=== PATIENT | female | born 1975 | race Caucasian/White ===

== ENCOUNTER 2018-10-24 10:56 | Emergency (ER) | payer OTHER ==
[2018-10-24] MEDS ORDERED: Diphtheria,Pertussis(Acell),Tetanus Vaccine 0.5 ML Syringe IM ONE (11:26)
[2018-10-24] MEDS ORDERED: Silver Sulfadiazine 1% Crm 50 GM Tube TOP ONE (11:27)
--- NOTE | 2018-10-24 11:38 | EDM.PDOC ---
ED HPI GENERAL MEDICAL PROBLEM - General Chief Complaint: Burn Stated Complaint: BURN ON LT HAND Time Seen by Provider: 10/24/18 10:59 Source of Information: Reports: Patient, Family History Limitations: Reports: Language Barrier - History of Present Illness INITIAL COMMENTS - FREE TEXT/NARRATIVE: HISTORY AND PHYSICAL: History of present illness: Patient is a 43-year-old female who presents to the ED today after burning her hands while working with hot oil for cooking. This happened about an hour and a half prior to arrival to the ED. Patient is not up-to-date with her tetanus vaccine. Patient rates her pain a 5 out of 10. Patient has had no other trauma or injury to the area. Patient is able to fully move her hands and has full sensation of her hands. Patient states there was a few splash areas to her forehead. Patient denies fever, chills, nausea, vomiting, or all other GI, , cardiovascular, or respiratory concerns. She denies any previous health history. Review of systems: As per history of present illness and below otherwise all systems reviewed and negative. Past medical history: As per history of present illness and as reviewed below otherwise noncontributory. Surgical history: As per history of present illness and as reviewed below otherwise noncontributory. Social history: See social history for further information Family history: As per history of present illness and as reviewed below otherwise noncontributory. Physical exam: General: Patient is alert, oriented, and in no acute distress. She is sitting comfortable on exam table. Her son was able to translate for us. HEENT: Atraumatic, normocephalic, pupils equal and reactive bilaterally, negative for conjunctival pallor or scleral icterus, mucous membranes moist, TMs normal bilaterally, throat clear, neck supple, nontender, trachea midline. No drooling or trismus noted. No meningeal signs. No hot potato voice noted. Lungs: Clear to auscultation, breath sounds equal bilaterally, chest nontender. Heart: S1S2, regular rate and rhythm without overt murmur Abdomen: Soft, nondistended, nontender. Negative for masses or hepatosplenomegaly. Negative for costovertebral tenderness. Pelvis: Stable nontender. Genitourinary: Deferred. Rectal: Deferred. Skin: See extremities. Otherwise, intact, warm, dry. No lesions or rashes noted. Extremities: The dorsal aspect of bilateral hands are erythematous, nonedematous , without blisters or lesions. The surface area is approximately 1-2% of the total body surface area covered by the burn. The burn is non-circumferential and contains only the dorsal aspect of the hands. The parents stops mid forearm on the dorsal aspect bilaterally. Negative for cords or calf pain. Neurovascular unremarkable. Neuro: Awake, alert, oriented. Cranial nerves II through XII unremarkable. Cerebellum unremarkable. Motor and sensory unremarkable throughout. Exam nonfocal. Notes: Patient is primarily speaking. Her son is in the room with her. [employer] stock [employer] was offered but patient prefers son to translate. Pain medication was offered to patient but she declines. On exam, about 1-2% total body area was burned on her hands bilaterally. This area is not circumferential and contain only the dorsum of the hands bilaterally. Patient did state she was splash in the forehead was unable to visualize any areas of burn. We will update patient states he wrapped, apply a Silvadene dressing, and have patient follow up with Dr. Recinos. Supportive care measures were reviewed and discussed. Voices understanding and is agreeable to plan of care. Denies any further questions or concerns at this time. Diagnostics: None Therapeutics: Silvadene dressing, tdap Prescription: None Impression: 1. Hand burn, bilateral Plan: 1. Apply the ointment we gave you to the area as directed and as discussed. 2. You can use ibuprofen and Tylenol as directed for pain management. 3. Follow-up with Dr. Recinos or your primary care provider as discussed. 4. Return to the ED as needed and as discussed. Definitive disposition and diagnosis as appropriate pending reevaluation and review of above. Left Lower Arm Pain Score (Numeric/FACES): 5 - Related Data Allergies Allergy/AdvReac Type Severity Reaction Status Date / Time No Known Allergies Allergy Verified 10/24/18 11:17 Home Meds: Home Meds . [No Known Home Meds] 10/24/18 [History] Past Medical History - Past Health History Medical/Surgical History: Denies Medical/Surgical History - Past Surgical History Female Surgical History: Reports: Hysterectomy Social & Family History - Family History Family Medical History: Noncontributory - Tobacco Use Smoking Status *Q: Former Smoker Used Tobacco, but Quit: Yes Month/Year Tobacco Last Used: 2017 - Recreational Drug Use Recreational Drug Use: No ED ROS GENERAL - Review of Systems Review Of Systems: ROS reveals no pertinent complaints other than HPI. ED EXAM, BURN/SMOKE INHALATION - Physical Exam Exam: See Below (see dictation) Course - Vital Signs Last Recorded V/S: Last Vital Signs Temp 97.0 F 10/24/18 11:14 Pulse 71 10/24/18 11:14 Resp 18 10/24/18 11:14 BP 159/99 H 10/24/18 11:14 Pulse Ox 96 10/24/18 11:14 - Orders/Labs/Meds Orders: Active Orders 24 hr Category Date Time Status Communication Order [RC] STAT Care 10/24/18 11:27 Active Vaccines to be Administered [RC] PER UNIT ROUTINE Care 10/24/18 11:27 Active Meds: Medications Discontinued Medications Generic Name Dose Route Start Last Admin Trade Name Freq PRN Reason Stop Dose Admin Diphtheria/Tetanus/Acell Pertussis 0.5 ml 10/24/18 11:26 Adacel IM 10/24/18 11:27 .ONCE ONE Silver Sulfadiazine 1 gm 10/24/18 11:27 Silvadene 1% Cream 50 Gm TOP 10/24/18 11:28 ONETIME ONE Departure - Departure Time of Disposition: 11:38 Disposition: Home, Self-Care 01 Clinical Impression: Burn - Discharge Information Instructions: Burn Care, Adult, [id number] Referrals: PCP,None [Primary Care Provider] - Forms: ED Department Discharge Additional Instructions: The following information is given to patients seen in the emergency department who are being discharged to home. This information is to outline your options for follow-up care. We provide all patients seen in our emergency department with a follow-up referral. The need for follow-up, as well as the timing and circumstances, are variable depending upon the specifics of your emergency department visit. If you don't have a primary care physician on staff, we will provide you with a referral. We always advise you to contact your personal physician following an emergency department visit to inform them of the circumstance of the visit and for follow-up with them and/or the need for any referrals to a consulting specialist. The emergency department will also refer you to a specialist when appropriate. This referral assures that you have the opportunity for follow-up care with a specialist. All of these measure are taken in an effort to provide you with optimal care, which includes your follow-up. Under all circumstances we always encourage you to contact your private physician who remains a resource for coordinating your care. When calling for follow-up care, please make the office aware that this follow-up is from your recent emergency room visit. If for any reason you are refused follow-up, please contact the [facility] at and asked to speak to the emergency department charge nurse. [facility] [address] [place] [id number] [address] [facility] Professional [facility] [address] [place] [address], [address] [place] [address] 1. Apply the ointment we gave you to the area as directed and as discussed. 2. You can use ibuprofen and Tylenol as directed for pain management. 3. Follow-up with Dr. Recinos or your primary care provider as discussed. 4. Return to the ED as needed and as discussed. - My Orders Last 24 Hours: My Active Orders 10/24/18 11:27 Communication Order [RC] STAT Vaccines to be Administered [RC] PER UNIT ROUTINE - Assessment/Plan Last 24 Hours: My Active Orders 10/24/18 11:27 Communication Order [RC] STAT Vaccines to be Administered [RC] PER UNIT ROUTINE
== END 2018-10-24 12:10 | disposition home or self-care (01) ==
LOC: MW.ED 10:56
DX: T23.101A Burn of first degree of right hand, unspecified site, initial encounter (principal); T23.102A Burn of first degree of left hand, unspecified site, initial encounter; Z23 Encounter for immunization; Z87.891 Personal history of nicotine dependence
CPT/HCPCS: 16000; 90471; 90715; 99283; A9270